=== PATIENT | female | born 1995 | race Caucasian/White ===

== ENCOUNTER → 2017-09-10 14:53 | Outpatient (CLI) | payer BC ==
[2015-08-09 11:57] VITALS: BMI 27.6
[~2017-09-10 14:53] MED LIST: IBUPROFEN600 MG PO; PERCOCET 5-3251 TAB PO; PRENATAL COMPLE1 TAB PO
== END | disposition home or self-care (01) ==
LOC: D.MRI 14:53
DX: G43.909 Migraine, unspecified, not intractable, without status migrainosus (principal)